=== PATIENT | male | born 1975 | race Two or more races ===

== ENCOUNTER 2020-02-11 22:01 | Emergency (ER) | payer OTHER, BC ==
[2020-02-11 23:16] LABS: ABSOLUTE EOSINOPHILS # (AUTO) 0.1 10^3/uL (0.0-0.6); ABSOLUTE LYMPHOCYTES (AUTO) 2.4 10^3/uL (0.5-4.7); ABSOLUTE NEUT (AUTO) 6.7 10^3/uL (1.7-8.2); BASOPHILS % (AUTO) 0.4 % (0-2); EOSINOPHILS % (AUTO) 1.3 % (0-6); HEMATOCRIT 42.3 % (37.9-51.0); HEMOGLOBIN 15.1 g/dL (13.5-17.0); LYMPHOCYTES % (AUTO) 23.2 % (13-45); MEAN CORPUSCULAR HEMOGLOBIN 29.4 pg (27.0-33.4); MEAN CORPUSCULAR HGB CONC 35.7 g/dL (32.0-36.0); MEAN CORPUSCULAR VOLUME 82 fl (80-97); MONOCYTES % (AUTO) 9.5 % (3-13); PLATELET COUNT 259 10^3/uL (150-450); RED BLOOD COUNT 5.14 10^6/uL (4.35-5.55); RED CELL DISTRIBUTION WIDTH 14.5 % (11.5-14.0); SEGMENTED NEUTROPHILS % (AUTO) 65.6 % (42-78); TOTAL CELLS COUNTED % (AUTO) 100 %; WHITE BLOOD COUNT 10.2 10^3/uL (4.0-10.5)
[2020-02-11 23:37] LABS: ALBUMIN 4.4 g/dL (3.5-5.0); ALKALINE PHOSPHATASE 71 U/L (38-126); ANION GAP 9 (5-19); ASPARTATE AMINO TRANSFERASE 30 U/L (17-59); BILIRUBIN,TOTAL 0.7 mg/dL (0.2-1.3); BLOOD UREA NITROGEN 16 mg/dL (7-20); CALCIUM 9.3 mg/dL (8.4-10.2); CARBON DIOXIDE 27 mmol/L (22-30); CHLORIDE 100 mmol/L (98-107); GLUCOSE 105 mg/dL (75-110); POTASSIUM 4.2 mmol/L (3.6-5.0); TOTAL PROTEIN 7.7 g/dL (6.3-8.2)
--- NOTE | 2020-02-12 00:02 | EKG REPORT ---
SEVERITY:- ABNORMAL ECG - SINUS RHYTHM INCOMPLETE RIGHT BUNDLE BRANCH BLOCK LEFT VENTRICULAR HYPERTROPHY CONSIDER ANTERIOR INFARCT : Confirmed by: Junior Valdes 12-Feb-2020 00:01:45
--- NOTE | 2020-02-12 02:27 | ER Document Report ---
ED General - General Chief Complaint: Chest Pressure Stated Complaint: DIFFICULTY BREATHING Time Seen by Provider: 02/12/20 02:00 Primary Care Provider: MAHAMED CAMPOS MD [Primary Care Provider] - Follow up as needed Notes: 44-year-old male with hypertension and recent travel to [facility] for his mother's due to coronavirus presents to the emergency department with chief complaint of chest pressure. Patient states that he had a workout last week and he swallowed some workout powder without drinking water. He immediately coughed it up and it came out of his nose. He subsequently had some chest tightness and since then has had intermittent chest tightness especially associated with exertion. He then traveled to [facility] for his mother's and is under a lot of stress. Since his return he has had 2 episodes where he had chest pressure on exertion. No associated diaphoresis, nausea, vomiting. No direct family history of early cardiac . Patient has not been tested for COVID-19. TRAVEL OUTSIDE OF THE [place] IN LAST 30 DAYS: No - Related Data Allergies/Adverse Reactions: No Known Allergies Allergy (Unverified 12/20/14 12:40) Past Medical History - Social History Smoking Status: Never Smoker Chew tobacco use (# tins/day): No Frequency of alcohol use: None Drug Abuse: None Family History: Reviewed & Not Pertinent Patient has suicidal ideation: No Patient has homicidal ideation: No Past Surgical History: Reports: Hx Orthopedic Surgery - rt knee and shoulder - Immunizations Hx Diphtheria, Pertussis, Tetanus Vaccination: No Review of Systems - Review of Systems Constitutional: See HPI EENT: No symptoms reported Cardiovascular: See HPI Respiratory: See HPI Gastrointestinal: See HPI Genitourinary: No symptoms reported Male Genitourinary: No symptoms reported Musculoskeletal: No symptoms reported Skin: No symptoms reported Hematologic/Lymphatic: No symptoms reported Neurological/Psychological: No symptoms reported Physical Exam - Vital signs Vitals: Temp 98.2 F 02/11/20 22:01 - Notes Notes: PHYSICAL EXAMINATION: Reviewed vital signs and charting by RN GENERAL: Alert, interacts well. No acute distress. HEAD: Normocephalic, atraumatic. EYES: Pupils equal and round. Extraocular movements intact. ENT: Oral mucosa moist, tongue midline. NECK: Full range of motion. Trachea midline. LUNGS: Clear to auscultation bilaterally, no wheezes, rales, or rhonchi. No respiratory distress. HEART: Regular rate and rhythm. No murmur ABDOMEN: soft, non-tender. No distention. Bowel sounds present EXTREMITIES: Moves all 4 extremities spontaneously. No edema, No cyanosis. PSYCH: Normal affect, normal mood. SKIN: Warm, dry, normal turgor. No rashes or lesions noted. Course - Re-evaluation Re-evalutation: 02/12/20 02:26 Well-appearing in no acute distress. Patient is hypertensive all other vital signs are within normal limits. Patient denies shortness of breath but did have 2 episodes of dyspnea on exertion previous to arrival. Patient did have recent travel to [facility] for his mother's and has been self isolating but I am going to test him for COVID-19. Troponin has been added and a chest x-ray has been ordered. 02/12/20 05:29 Patient had 2 troponins which were 0.0 72H. Chest x-ray was normal. Repeat EKG unchanged. I spoke with Dr. Baker, global marketing operations manager on-call, who said that patient still did not meet the cutoff for cardiac injury and the results are most likely due to the new assays that are high sensitivity. With that, Dr. Baker is going to schedule a stress test for the patient on Saturday. Dr. Baker states that the patient can follow-up outpatient. This is all been explained to the patient. Patient also did get his COVID test. Patient is stable for discharge. - Vital Signs Vital signs: Temp Pulse Resp BP Pulse Ox 98.0 F 70 15 147/108 H 97 02/12/20 00:35 02/11/20 22:18 02/12/20 04:46 02/12/20 04:46 02/12/20 04:46 - Laboratory Result Diagrams: 02/11/20 22:59 02/11/20 22:59 Laboratory results interpreted by me: 02/11/20 02/11/20 22:59 22:59 RDW 14.5 H Sodium 136.4 L Discharge - Discharge Clinical Impression: Chest pressure Condition: Good Disposition: HOME, SELF-CARE Additional Instructions: You were seen today for chest pain and pressure. The exact cause of your pain is unclear. However, based on your cardiac enzyme testing, chest x-ray, and EKG it does not appear that it is from an immediately life-threatening cause at this time. Although your testing here is normal is critical that you follow-up with Dr. Baker for stress testing was likely on Saturday. He has requested your information and should be contacting you to schedule. Also, the results of the COVID-19 test typically take 3 days, so please continue to self isolate until you get results. Please return to emergency department immediately if you have worsening of your chest pain, shortness of breath, vomiting, become unable to exert yourself due to pain or difficulty breathing, you pass out, or have any pain that radiates into your arms, jaw, or back. Please also return if you have any additional symptoms that are concerning to you. Forms: Return to Work Referrals: MAHAMED CAMPOS MD [Primary Care Provider] - Follow up as needed LATIA BAKER MD [ACTIVE PROVISIONAL STAFF] - 02/12/20
--- NOTE | 2020-02-12 03:29 | RADIOLOGY REPORT (SQ) ---
EXAM DESCRIPTION: XR CHEST 1 VIEW COMPLETED DATE/TME: 02/12/2020 02:24 CLINICAL HISTORY: 44 years Male, chest pressure COMPARISON: None. NUMBER OF VIEWS/TECHNIQUE: 1/AP FINDINGS: Adequate lung volume, clear parenchyma, normal cardiac silhouette, and intact bony thorax. IMPRESSION: No acute cardiopulmonary findings.
[2020-02-12 04:52] VITALS: BP 147/108
--- NOTE | 2020-02-14 11:07 | EKG REPORT ---
SEVERITY:- ABNORMAL ECG - SINUS RHYTHM PROBABLE LEFT ATRIAL ABNORMALITY LEFT VENTRICULAR HYPERTROPHY CONSIDER ANTERIOR INFARCT : Confirmed by: Junior Valdes 14-Feb-2020 11:07:07
== END 2020-02-12 05:45 | disposition home or self-care (01) ==
LOC: ER 22:01
DX: R07.9 Chest pain, unspecified (principal); I10 Essential (primary) hypertension; Z20.828 Contact with and (suspected) exposure to other viral communicable diseases
CPT/HCPCS: 36415; 71045; 80053; 84484; 85025; 87635; 93005; 93010; 99285